=== PATIENT | male | born 2000 | race Caucasian/White ===

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

== ENCOUNTER → 2018-11-13 | Outpatient (CLI) | payer BC ==
--- NOTE | 2018-11-16 07:54 | EEG ---
ELECTROENCEPHALOGRAM REPORT PROCEDURE DATE: 11/13/2018. TECHNIQUE: A routine 18 channel EEG was performed with video using the 10/20 electrode placement system. HISTORY: Patient was playing hockey and in between sessions in the locker room, began to hyperventilate, he passed out. At 1 point he stiffened up and was tense afterwards. CURRENT MEDICATIONS: Vitamin D. STUDY DURATION: 26 minutes. FINDINGS: Background: The background activity consists of 9-10 hertz rhythmic waveforms symmetrically over both posterior quadrants. Activation: Hyperventilation: Induced mild physiological slowing. Photic stimulation: Symmetric driving seen. Sleep: Stages 1 and 2 sleep noted. Abnormalities: None. Please note that 1 channel of this EEG was dedicated to EKG. It demonstrated a sinus rhythm. IMPRESSION: Normal EEG. No epileptiform activity was present. No seizures were recorded. MMODL / IJN: [id number] /
== END ==
LOC: NEUROMAIN 09:46
PROVIDERS: ATTEND Pediatrics Adolescent Medicine
DX: G40.89 Other seizures (principal)
CPT/HCPCS: 95819

== ENCOUNTER → 2019-09-30 | Outpatient (CLI) | payer BC ==
--- NOTE | 2019-09-30 08:43 | CT ---
EXAMINATION TYPE: CT brain wo con DATE OF EXAM: 09/30/2019 COMPARISON: None HISTORY: HAYES, post head injury, hockey injury, struck back of head on ice CT DLP: [address] of the brain was performed. The ventricles, basal cisterns and sulci overlying the cerebral convexities demonstrate a normal appe arance. There is no evidence for intracranial hemorrhage or sulcal effacement. No mass effects are seen. Osseous calvarium is intact. Mucosal thickening noted the left maxillary sinus and ethmoid air cells. If symptoms persist consider MRI as clinically warranted. IMPRESSION: 1. No acute intracranial process is seen at this time.
== END | disposition home or self-care (01) ==
LOC: RADCTMAIN 07:52
PROVIDERS: ATTEND Family Medicine
DX: S09.90XA Unspecified injury of head, initial encounter (principal); R51 Headache
CPT/HCPCS: 70450